=== PATIENT | male | born 1960 | race Caucasian/White ===

== ENCOUNTER 2017-07-18 17:25 | Emergency (ER) | payer BC ==
[2017-07-18 17:45] VITALS: BP 133/110
== END 2017-07-18 18:03 | disposition left against medical advice (07) ==
LOC: MW.ED 17:25
DX: Z53.21 Procedure and treatment not carried out due to patient leaving prior to being seen by health care provider (principal)

== ENCOUNTER 2017-11-10 08:10 | Day surgery (SDC) | payer BC ==
[~2017-11-10 08:10] MED LIST: Acetaminophen/HYDROcodone 325-5 MG Tab PO PRN; Bupivacaine 0.25%/EPINEPHrine 1:200,000 10 ML SDV INJECT ONE; Bupivacaine 25%/EPINEPHrine/PF 30 ML ONE; Dexamethasone/Tobramycin 0.1-0.3% Ophth Oint 3.5 GM Tube ONE; Lactated Ringers 1,000 ML IV SCH; Tetracaine 0.5% Ophth Soln 15 ML Bottle ONE; ceFAZolin 2 GM in Premix Bag 1 BAG IV ONE
[2017-11-10] MEDS ORDERED: fentaNYL 100 MCG/2 ML SDV ONE (08:52)
[2017-11-10] MEDS ORDERED: Propofol 200 MG/20 ML SDV ONE (08:52)
[2017-11-10] MEDS ORDERED: Midazolam 1 MG/ML 2 ML SDV ONE (08:52)
[2017-11-10] MEDS ORDERED: Lidocaine 2% 5 ML SDV ONE (08:52)
[2017-11-10] MEDS ORDERED: ceFAZolin 1 GM Vial ONE (08:53)
[2017-11-10] MEDS ORDERED: Sodium Chloride 0.9% 20 ML ONE (08:53)
--- NOTE | 2017-11-10 09:08 | PCM.PREANE ---
Preanesthetic Assessment - Anesthesia/Transfusion/Family Hx Anesthesia History: Prior Anesthesia Without Reaction Other Type of Anesthesia Reaction Comment: no anesthesia reactions. Family History of Anesthesia Reaction: No Transfusion History: No Prior Transfusion(s) Intubation History: Unknown - Review of Systems General: No Symptoms Pulmonary: No Symptoms Cardiovascular: No Symptoms Gastrointestinal: No Symptoms Neurological: No Symptoms Other: Reports: None - Physical Assessment O2 Sat by Pulse Oximetry: 100 Respiratory Rate: 16 Vital Signs: Last Vital Signs Temp 36.4 C 11/10/17 08:28 Pulse 55 L 11/10/17 08:28 Resp 16 11/10/17 08:28 BP 134/78 11/10/17 08:28 Pulse Ox 100 11/10/17 08:28 Height: 1.78 m Weight: 84.822 kg ASA Class: 2 Mental Status: Alert & Oriented x3 Airway Class: Mallampati = 2 Dentition: Reports: Dentures (upper and lower) Thyro-Mental Finger Breadths: 3 Mouth Opening Finger Breadths: 3 ROM/Head Extension: Full Lungs: Clear to Auscultation, Normal Respiratory Effort Cardiovascular: Regular Rate, Regular Rhythm - Allergies Allergies/Adverse Reactions: Allergies Allergy/AdvReac Type Severity Reaction Status Date / Time No Known Allergies Allergy Verified 11/09/17 10:04 - Blood Blood Available: No - Anesthesia Plan Pre-Op Medication Ordered: None - Acknowledgements Anesthesia Type Planned: MAC Pt an Appropriate Candidate for the Planned Anesthesia: Yes Alternatives and Risks of Anesthesia Discussed w Pt/Guardian: Yes Pt/Guardian Understands and Agrees with Anesthesia Plan: Yes PreAnesthesia Questionnaire HEENT History: Reports: Impaired Vision, Other (See Below) Other HEENT History: wears glasses, has upper and lower dentures Cardiovascular History: Reports: High Cholesterol, Hypertension Respiratory History: Reports: None Gastrointestinal History: Reports: None, Colon Polyp, Other (See Below) (h/o increase liver enzymes) Genitourinary History: Reports: None Musculoskeletal History: Reports: Fracture Other Musculoskeletal History: thumb, elbow pain Neurological History: Reports: None Psychiatric History: Reports: None Endocrine/Metabolic History: Reports: None Hematologic History: Reports: None Immunologic History: Reports: None Oncologic (Cancer) History: Reports: None Dermatologic History: Reports: None - Past Surgical History Head Surgeries/Procedures: Reports: None HEENT Surgical History: Reports: None Cardiovascular Surgical History: Reports: None Respiratory Surgical History: Reports: None GI Surgical History: Reports: Colonoscopy Male Surgical History: Reports: None Endocrine Surgical History: Reports: None Neurological Surgical History: Reports: None Musculoskeletal Surgical History: Reports: Arthroscopic Knee Other Musculoskeletal Surgeries/Procedures:: left knee arthroscopy Oncologic Surgical History: Reports: None Dermatological Surgical History: Reports: None - SUBSTANCE USE Smoking Status *Q: Never Smoker Recreational Drug Use History: No - HOME MEDS Home Medications: Home Meds Atenolol/Chlorthalidone [Atenolol-Chlorthalidone 100-25] 1 tab PO DAILY [History] Simvastatin [Zocor] 1 tab PO BEDTIME 10/13/15 [History] Fish Oil/[place]-3 Fatty Acids [Fish Oil 1,000 MG] 1 tab PO DAILY 11/09/17 [ History] Orphenadrine Citrate 1 tab PO BID 11/09/17 [History] - CURRENT (IN HOUSE) MEDS Current Meds: Current Medications Hydrocodone Bitart/Acetaminophen ([place] 325-5 Mg) 1 tab PO Q4H PRN PRN Reason: Pain Lactated Ringer's (Ringers, Lactated) 1,000 mls @ 125 mls/hr IV ASDIRECTED [facility] Last Admin: 11/10/17 08:24 Dose: 125 mls/hr Discontinued Medications Bupivacaine HCl/Epinephrine Bitart (Marcaine 0.25%/Epinephrine 1:200,000) 10 ml INJECT ONETIME ONE Stop: 11/10/17 08:01 Cefazolin Sodium (Ancef) Confirm Administered Dose 2 gm .ROUTE .STK-MED ONE Stop: 11/10/17 08:54 Fentanyl (Sublimaze) Confirm Administered Dose 100 mcg .ROUTE .STK-MED ONE Stop: 11/10/17 08:53 Cefazolin Sodium/Dextrose 2 gm (/ Premix) 50 mls @ 100 mls/hr IV ONETIME ONE Stop: 11/10/17 08:29 Bupivacaine HCl/Epinephrine Bitart (Sensorc Mpf 0.25%-Epi 1:400083) Confirm Administered Dose 30 mls @ as directed .ROUTE .STK-MED ONE Stop: 11/10/17 07:24 Sodium Chloride (Normal Saline) Confirm Administered Dose 20 mls @ as directed .ROUTE .STK-MED ONE Stop: 11/10/17 08:54 Lidocaine (Xylocaine-Mpf 2%) Confirm Administered Dose 5 ml .ROUTE .STK-MED ONE Stop: 11/10/17 08:53 Midazolam HCl (Versed 1 Mg/Ml) Confirm Administered Dose 2 mg .ROUTE .STK-MED ONE Stop: 11/10/17 08:53 Propofol (Diprivan 20 Ml) Confirm Administered Dose 200 mg .ROUTE .STK-MED ONE Stop: 11/10/17 08:53 Tetracaine (Tetracaine 0.5% Ophth Soln) Confirm Administered Dose 15 ml .ROUTE .STK-MED ONE Stop: 11/10/17 07:24 Tobramycin/Dexamethasone (Tobradex Ophth Oint) Confirm Administered Dose 3.5 gm .ROUTE .STK-MED ONE Stop: 11/10/17 07:24
[2017-11-10] MEDS ORDERED: Ondansetron 4 MG/2 ML SDV ONE (10:00)
--- NOTE | 2017-11-10 10:49 | PCM.OPNOTE ---
- General Post-Op/Procedure Note Date of Surgery/Procedure: 11/10/17 Operative Procedure(s): bilateral upper lid blepharoplasties for excess skin Pre Op Diagnosis: bilateral upper lid dermatochalasis Post-Op Diagnosis: Same Anesthesia Technique: Local, MAC Primary Surgeon: Rani uDbois Complications: None Condition: Good
[2017-11-10 10:51] VITALS: BP 122/69
--- NOTE | 2017-11-10 12:54 | PCM48HPAN ---
Post Anesthesia Note - EVALUATION WITHIN 48HRS OF ANESTHETIC Vital Signs in Normal Range: Yes Patient Participated in Evaluation: Yes Respiratory Function Stable: Yes Airway Patent: Yes Cardiovascular Function Stable: Yes Hydration Status Stable: Yes Pain Control Satisfactory: Yes Nausea and Vomiting Control Satisfactory: Yes Mental Status Recovered: Yes Resp Rate: 11
--- NOTE | 2017-11-14 18:12 | OR ---
SURGEON: JAMES GILES MD DATE OF PROCEDURE: 11/10/2017 PREOPERATIVE DIAGNOSIS: Bilateral upper lid dermatochalasis. POSTOPERATIVE DIAGNOSIS: Bilateral upper lid dermatochalasis. PROCEDURE: Bilateral upper lid blepharoplasties for excess skin. ANESTHESIA: Local MAC. INDICATIONS: Mr. Cooper is a 56-year-old gentleman with bilateral upper lid excess skin. Risks and benefits of upper lid blepharoplasties were discussed with him and he was in agreement to proceed. The risks were including, but not limited to, bleeding, infection, damage to underlying or overlying structures, possible need for future interventions, possible scarring. PROCEDURE IN DETAIL: After informed consent was obtained and placed on chart, the patient was brought to operating theater and laid in supine position. After adequate local MAC anesthesia was obtained, the area was prepped and draped and a time-out was completed to confirm side and site. Marcaine 0.25% with epinephrine was injected into the area after appropriate marking with the caliper. Once adequately marked and meticulous injection of local anesthesia, the upper eyelid skin was then excised in standard fashion using the previously meticulously marked incisions. The skin was removed using a 15 blade and then Bovie electrocautery was used to hemostasis the muscle for contraction and hemostasis the area to control any bleeding. The wound was then closed using deep 5-0 Monocryl stitch and a running 6-0 Prolene for the skin. The symmetry procedure was completed on the opposite side for bilateral upper eyelids. Once completed, the 6-0 Prolene sutures from the ends were Steri- Stripped in place using Mastisol and one-eight inch Steri-Strips. The patient tolerated this well and the wounds were dressed with TobraDex ointment. He tolerated this and all counts and needles were correct at the end of the case. FOLLOWUP INSTRUCTIONS: The patient will see us in followup in 1 week, sooner if any problems, questions, or concerns. He was given a prescription for pain control. NELLY / TOREY /[id number]
== END 2017-11-10 11:15 | disposition home or self-care (01) ==
LOC: MW.SDS 08:10
PROVIDERS: ATTEND Plastic Surgery
DX: H02.834 Dermatochalasis of left upper eyelid (principal); H02.831 Dermatochalasis of right upper eyelid; I10 Essential (primary) hypertension; E78.00 Pure hypercholesterolemia, unspecified; Z79.899 Other long term (current) drug therapy
CPT/HCPCS: 15822; A9270; J0690; J2250; J2405; J3010; J7120; 00103; J2704

== ENCOUNTER 2021-03-19 10:44 | Day surgery (SDC) | payer BC ==
[~2021-03-19 10:44] MED LIST changes: -Acetaminophen/HYDROcodone 325-5 MG Tab PO PRN; -Bupivacaine 0.25%/EPINEPHrine 1:200,000 10 ML SDV INJECT ONE; -Bupivacaine 25%/EPINEPHrine/PF 30 ML ONE; -Dexamethasone/Tobramycin 0.1-0.3% Ophth Oint 3.5 GM Tube ONE; -Tetracaine 0.5% Ophth Soln 15 ML Bottle ONE; -ceFAZolin 2 GM in Premix Bag 1 BAG IV ONE
--- NOTE | 2021-03-19 11:51 | PCM.PREANE ---
Preanesthetic Assessment - Procedure Proposed Procedure: Colonoscopy - Anesthesia/Transfusion/Family Hx Anesthesia History: Prior Anesthesia Without Reaction Other Type of Anesthesia Reaction Comment: no anesthesia reactions. Transfusion History: No Prior Transfusion(s) Intubation History: Unknown - Review of Systems General: No Symptoms Pulmonary: No Symptoms Cardiovascular: No Symptoms (HTN, HLD) Gastrointestinal: No Symptoms Neurological: No Symptoms Other: Reports: None - Physical Assessment NPO Status Date: 03/17/21 NPO Status Time: 23:00 (Solids, >8hrs liq) Vital Signs: Last Vital Signs Temp 97.9 F 03/19/21 10:57 Pulse 68 03/19/21 10:57 Resp 16 03/19/21 10:57 BP 116/72 03/19/21 10:57 Pulse Ox 97 03/19/21 10:57 Height: 5 ft 10 in Weight: 76.657 kg ASA Class: 2 Mental Status: Alert & Oriented x3 Airway Class: Mallampati = 2 Dentition: Reports: Dentures Thyro-Mental Finger Breadths: 3 Mouth Opening Finger Breadths: 3 ROM/Head Extension: Full Lungs: Clear to Auscultation, Normal Respiratory Effort Cardiovascular: Regular Rate, Regular Rhythm - Allergies Allergies/Adverse Reactions: Allergies Allergy/AdvReac Type Severity Reaction Status Date / Time No Known Allergies Allergy Verified 03/15/21 07:56 - Acknowledgements Anesthesia Type Planned: General Anesthesia Pt an Appropriate Candidate for the Planned Anesthesia: Yes Alternatives and Risks of Anesthesia Discussed w Pt/Guardian: Yes Pt/Guardian Understands and Agrees with Anesthesia Plan: Yes PreAnesthesia Questionnaire HEENT History: Reports: Impaired Vision, Other (See Below) Other HEENT History: wears glasses, has upper and lower dentures Cardiovascular History: Reports: High Cholesterol, Hypertension Respiratory History: Reports: None Gastrointestinal History: Reports: Colon Polyp Genitourinary History: Reports: None Musculoskeletal History: Reports: Fracture Other Musculoskeletal History: thumb, Neurological History: Reports: None Psychiatric History: Reports: None Endocrine/Metabolic History: Reports: None Hematologic History: Reports: None Immunologic History: Reports: None Oncologic (Cancer) History: Reports: None Dermatologic History: Reports: None - Past Surgical History Head Surgeries/Procedures: Reports: None HEENT Surgical History: Reports: None Cardiovascular Surgical History: Reports: None Respiratory Surgical History: Reports: None GI Surgical History: Reports: Colonoscopy Male Surgical History: Reports: None Endocrine Surgical History: Reports: None Neurological Surgical History: Reports: None Musculoskeletal Surgical History: Reports: Arthroscopic Knee Other Musculoskeletal Surgeries/Procedures:: left knee arthroscopy Oncologic Surgical History: Reports: None Dermatological Surgical History: Reports: None - SUBSTANCE USE Tobacco Use Within Last Twelve Months: Other (See Below) - HOME MEDS Home Medications: Home Meds Atenolol/Chlorthalidone [Atenolol-Chlorthalidone 100-25] 1 tab PO DAILY 10/13/15 [History] Simvastatin [Zocor] 10 mg PO BEDTIME 10/13/15 [History] Fish Oil/[place]-3 Fatty Acids [Fish Oil 1,000 MG] 1 tab PO DAILY 11/09/17 [Histor y] Acyclovir 800 mg PO BID PRN 03/15/21 [History] - CURRENT (IN HOUSE) MEDS Current Meds: Current Medications Lactated Ringer's (Ringers, Lactated) 1,000 mls @ 125 mls/hr IV ASDIRECTED [facility] Last Admin: 03/19/21 11:33 Dose: 125 mls/hr Documented by:
[2021-03-19] MEDS ORDERED: propofoL 50 ML ONE (12:47)
[2021-03-19] MEDS ORDERED: fentaNYL 100 MCG/2 ML SDV ONE (13:08)
[2021-03-19] MEDS ORDERED: Sodium Chloride 0.9% 20 ML ONE (13:38)
[2021-03-19] MEDS ORDERED: ePHEDrine 50 MG/ML SDV ONE (13:38)
--- NOTE | 2021-03-19 14:00 | PCM.POSTAN ---
POST ANESTHESIA ASSESSMENT - MENTAL STATUS Mental Status: Alert, Oriented - VITAL SIGNS Vital Signs: Last Vital Signs Temp 97.9 F 03/19/21 10:57 Pulse 68 03/19/21 10:57 Resp 16 03/19/21 10:57 BP 116/72 03/19/21 10:57 Pulse Ox 97 03/19/21 10:57 - RESPIRATORY Respiratory Status: Respiratory Rate WNL, Airway Patent, O2 Saturation Stable - CARDIOVASCULAR CV Status: Pulse Rate WNL, Blood Pressure Stable - GASTROINTESTINAL GI Status: No Symptoms - PAIN Pain Score: 0 - POST OP HYDRATION Hydration Status: Adequate & Stable
--- NOTE | 2021-03-19 14:04 | PCM48HPAN ---
Post Anesthesia Note - EVALUATION WITHIN 48HRS OF ANESTHETIC Vital Signs in Normal Range: Yes Patient Participated in Evaluation: Yes Respiratory Function Stable: Yes Airway Patent: Yes Cardiovascular Function Stable: Yes Hydration Status Stable: Yes Pain Control Satisfactory: Yes Nausea and Vomiting Control Satisfactory: Yes Mental Status Recovered: Yes Vital Signs: Last Vital Signs Temp 97.9 F 03/19/21 10:57 Pulse 68 03/19/21 10:57 Resp 16 03/19/21 10:57 BP 116/72 03/19/21 10:57 Pulse Ox 97 03/19/21 10:57 - COMMENTS/OBSERVATIONS Free Text/Narrative:: Pt doing well post-op. VSS. No apparent anesthetic complications. Dr. Dale Odonnell
[2021-03-19 14:20] VITALS: BP 95/58; PULSE 67
--- NOTE | 2021-03-19 14:21 | PCM.OPNOTE ---
- General Post-Op/Procedure Note Date of Surgery/Procedure: 03/19/21 Operative Procedure(s): Colonoscopy with cold ascending colon polypectomy Pre Op Diagnosis: Personal history of colon polyps Post-Op Diagnosis: Descending colon polyp Anesthesia Technique: MAC (ASA II) Primary Surgeon: Bladimir Covarrubias [employer] Machine Operator: Meagan Boone Condition: Good Free Text/Narrative:: Intake & Output 03/19/21 03/19/21 03/19/21 03:59 11:59 19:59 Intake Total 500 Balance 500 DICTATION 149506 CPT CODE 09761
[2021-03-19] MEDS ORDERED: Lactated Ringers 1,000 ML IV SCH (14:30)
--- NOTE | 2021-03-19 19:56 | OR ---
SURGEON: Bladimir Covarrubias M.D. DATE OF PROCEDURE: 03/19/2021 OPERATION PERFORMED: Colonoscopy with cold transverse colon polypectomy. PRIMARY SURGEON: Bladimir Covarrubias M.D. DIRECTOR ON AIR: [employer] Professor: Meagan Boone NP student. ANESTHESIA: MAC. ASA CLASSIFICATION: II. PREOPERATIVE DIAGNOSIS: Personal history of colon polyps. POSTOPERATIVE DIAGNOSIS: Small descending colon polyp. DESCRIPTION OF PROCEDURE: The patient was taken to the endoscopy room and positioned on the endoscopy table in the left lateral decubitus position. Time-out was called for appropriate identification of the patient and procedure. Monitored anesthesia care was provided. The colonoscope was inserted into the rectum and advanced with minimal difficulty to the cecum. The cecum was identified by internal landmarks and external pressure. The colonoscope was retroflexed in the cecum to visualize the ascending colon from below and then straightened and slowly withdrawn. The cecum, ascending colon, hepatic flexure, and splenic flexure showed no tumors, polyps, diverticula, or angiodysplastic changes. One small polyp was encountered in the transverse colon and removed with the cold biopsy forceps. No diverticular changes were noted in the sigmoid colon, and no other tumors or polyps were seen. The colonoscope was then withdrawn to the rectum and retroflexed to visualize the anal orifice from above. Again, no tumors or polyps were seen and there were no acute hemorrhoidal changes. The colonoscope was then straightened, the rectum aspirated, and the colonoscope removed. The patient tolerated the procedure well and was taken to recovery room in stable condition. MARCOS / TOREY /[id number]
== END 2021-03-19 14:25 | disposition home or self-care (01) ==
LOC: MW.SDS 10:44
PROVIDERS: ATTEND Surgery
DX: Z12.11 Encounter for screening for malignant neoplasm of colon (principal); D12.3 Benign neoplasm of transverse colon; E78.00 Pure hypercholesterolemia, unspecified; I10 Essential (primary) hypertension; F17.220 Nicotine dependence, chewing tobacco, uncomplicated; Z79.899 Other long term (current) drug therapy; Z98.890 Other specified postprocedural states
CPT/HCPCS: 45380; 88305; J2704; J3010; J7120; 00812